=== PATIENT | male | born 1995 | race Caucasian/White ===

== ENCOUNTER 2016-08-26 09:48 | Inpatient (IN) | payer OTHER ==
[~2016-08-26] VITALS: Ht 170.2 cm; Wt 75.7 kg
[2016-08-27] MEDS ORDERED: CLON0.1T PO (09:59)
[2016-08-27] MEDS ORDERED: PHEN100C4 PO (09:59)
[2016-08-27] MEDS ORDERED: PROP10TA10 PO (09:59)
[2016-08-27] MEDS ORDERED: GABA600T2 PO (09:59)
[2016-08-27] MEDS ORDERED: BACL20TA PO (09:59)
[2016-08-27] MEDS ORDERED: OMEP20TA68 PO (09:59)
[2016-08-27] MEDS ORDERED: HYDR50CA5 PO (09:59)
--- NOTE | 2016-08-27 10:30 | NUR ---
ADMISSION Pt 21 y/o male admitted for xanax, klonopin, subutex, fentanyl withdrawal. Pt came from friend's house. Pt alert and oriented to name, place, and time. Perrla. Skin warm and moist to touch. Respirations even and unlabored. Bilateral hand tremors felt. initial EL=310/84. recheck BP= 143/87. Pt observed with perspiration on face. Pt anxious, pacing, and fidgety during assessment. Pt also with statements, " my skin is crawling". Allergy to pcn. Pt was started on a 5 day subutex and 5 day valium taper. Initial cows=11 ciwa=5. Pt was seen by Dr. Monahan. Pt was oriented to the unit and room. Pt states he has no PCP. Substance hx: - xanax po 12 mg daily x 5months and last used 08/26/16 8 mg - klonopin po 6-8mg every other day x4 months and last used 08/25/16 6 mg - subutex po SL 20mg daily x5 months and last used 08/27/16 4 mg - fentanyl powder snorts 0.5gm 1-2 times per week and last used 08/23/16 0.5gm - heroin IV 1gm daily x 4 years and last used 05/17/16 2.5gm Medical hx - seizure (12/27 benzo withdrawal) , htn, hep C ( per pt) treatment hx: - [facility] 03/2016
[2016-08-27] MEDS ORDERED: LORAZEPAM 1 MG TABLET PO PRN ×2 (11:15)
[2016-08-27] MEDS ORDERED: LORAZEPAM 2 MG/1 ML VIAL IM PRN (11:15)
[2016-08-27] MEDS ORDERED: LOPERAMIDE HCL 2 MG CAPSULE PO PRN ×2 (11:15)
[2016-08-27] MEDS ORDERED: MAG HYDROX/AL HYDROX/SIMETH 30 ML LIQUID UDC PO PRN (11:15)
[2016-08-27] MEDS ORDERED: MIRALAX 17 GM POWD.PACK PO PRN (11:15)
[2016-08-27] MEDS ORDERED: ACETAMINOPHEN 325 MG TABLET PO PRN (11:15)
[2016-08-27] MEDS ORDERED: THIAMINE HCL 200 MG/2 ML VIAL IM ONE (11:15)
[2016-08-27] MEDS ORDERED: DICYCLOMINE HCL 20 MG TABLET PO PRN (11:15)
[2016-08-27] MEDS ORDERED: MAGNESIUM HYDROXIDE 30 ML LIQUID UDC PO PRN (11:15)
[2016-08-27] MEDS ORDERED: PROMETHAZINE HCL 25 MG/1 ML VIAL IM PRN (11:15)
[2016-08-27] MEDS ORDERED: BUPRENORPHINE HCL 2 MG TAB.SUBL SL PRN (11:30)
[2016-08-27] MEDS ORDERED: Medication Not On Formulary EA (Omeprazole 20 MG) PO SCH (11:30)
[2016-08-27] MEDS ORDERED: PHENYTOIN SODIUM EXTENDED 100 MG CAPSULE.SA PO SCH (11:30)
[2016-08-27 11:32] LABS: *AMPHETAMINE, URINE NEGATIVE (NEGATIVE); *BARBITURATE, URINE NEGATIVE (NEGATIVE); *CANNABINOID, URINE NEGATIVE (NEGATIVE); *COCCAINE, URINE NEGATIVE (NEGATIVE); *OPIATE, URINE NEGATIVE (NEGATIVE); *PHENCYCLIDINE SCREEN,URINE NEGATIVE (NEGATIVE)
[2016-08-27] MEDS ORDERED: DILANTIN 30 MG PO SCH (11:45)
[2016-08-27 11:47] LABS: BASOPHILS # (AUTO) 0.1 K/uL (0.0-0.2); BASOPHILS % (AUTO) 0.9 % (0.0-2.0); EOSINOPHILS # (AUTO) 0.1 K/uL (0.0-0.7); EOSINOPHILS % (AUTO) 1.2 % (0.0-7.0); HEMATOCRIT 42.7 % (40.0-50.0); HEMOGLOBIN 14.5 g/dL (14.0-18.0); LYMPHOCYTES # (AUTO) 3.7 K/uL (0.8-4.8); LYMPHOCYTES % (AUTO) 41.5 % (20.5-51.5); MEAN CORPUSCULAR HEMOGLOBIN 29.8 uug (27.0-31.0); MEAN CORPUSCULAR HGB CONC 34 g/dL (32.0-37.0); MEAN CORPUSCULAR VOLUME 87.8 fL (82.0-92.0); MONOCYTES # (AUTO) 0.9 K/uL (0.1-1.30); MONOCYTES % (AUTO) 10.6 % (0.0-11.0); NEUTROPHILS # (AUTO) 4.1 K/uL (1.8-8.9); NEUTROPHILS % (AUTO) 45.8 % (38.5-71.5); PLATELET COUNT (AUTO) 292 K/uL (150-450); RED BLOOD CELL COUNT(AUTO) 4.86 MIL/uL (4.70-6.10); RED CELL DISTRIBUTION WIDTH 12.9 % (11.5-14.5); WHITE BLOOD COUNT (AUTO) 8.9 K/uL (4.0-11.2)
[2016-08-27 12:00] VITALS: BP 143/87
[2016-08-27] MEDS: GABAPENTIN 300 MG CAPSULE PO SCH ×2 (12:06→17:34)
[2016-08-27] MEDS: BUPRENORPHINE HCL 2 MG TAB.SUBL SL SCH ×4 (12:06→21:19)
[2016-08-27 12:12] LABS: ETHANOL < 3 MG/DL (0-0)
[2016-08-27 12:16] LABS: ALANINE AMINOTRANSFERASE 106 U/L (16-63); ALKALINE PHOSPHATASE 104 U/L (50-136); ASPARTATE AMINOTRANSFERASE 44 U/L (15-37); BILIRUBIN,TOTAL 0.5 mg/dL (0.2-1.0); CALCIUM 8.9 mg/dL (8.5-10.1); CARBON DIOXIDE 30 mmol/L (21-32); CHLORIDE 109 mmol/L (98-107); GFR 94 mL/min (>60); GLUCOSE 95 mg/dL (74-106); MAGNESIUM 1.9 mg/dL (1.8-2.4); POTASSIUM 3.9 mmol/L (3.5-5.1); SODIUM SERUM 146 mmol/L (136-145); TOTAL PROTEIN, SERUM 6.8 g/dL (6.4-8.2); UREA NITROGEN, BLOOD 12 mg/dL (7-18)
[2016-08-27] MEDS: BACLOFEN 20 MG TABLET PO PRN (12:27)
[2016-08-27] MEDS: CLONIDINE HCL 0.1 MG TABLET PO PRN ×2 (12:27→19:03)
[2016-08-27] MEDS: ONDANSETRON ODT 4 MG TAB.RAPDIS SL PRN (12:27)
--- NOTE | 2016-08-27 12:27 | NUR ---
PRN Pt with c/o body aches 01/21. Baclofen po prn per MD order given and tolerated well.
--- NOTE | 2016-08-27 12:27 | NUR ---
PRN Pt with c/o nausea. Zofran po prn per MD order given and tolerated well.
[2016-08-27 12:31] LABS: THYROID STIMULATING HORMONE 0.421 mIU/mL (0.358-3.740)
[2016-08-27 12:39] LABS: HIV-1 p24 ANTIGEN NON REACTIVE (NONREACTIVE); HIV-1/2 ANTIBODY NON REACTIVE (NONREACTIVE)
[2016-08-27] MEDS ORDERED: Medication Not On Formulary EA (Gabapentin 600 MG) PO SCH (13:00)
[2016-08-27] MEDS ORDERED: DIAZEPAM 5 MG TABLET PO PRN (14:00)
[2016-08-27] MEDS ORDERED: NORMAL SALINE NASAL 45 ML BOTTLE NS PRN (14:00)
[2016-08-27] MEDS ORDERED: DIAZEPAM 10 MG TABLET PO PRN ×2 (14:00)
[2016-08-27] MEDS: DIAZEPAM 10 MG TABLET PO SCH ×3 (14:39→21:19)
[2016-08-27] MEDS ORDERED: PHENYTOIN 100 MG/4 ML UDC PO ONE (14:45)
[2016-08-27] MEDS ORDERED: PHENYTOIN SODIUM EXTENDED 100 MG CAPSULE.SA PO ONE ×3 (15:00→19:00)
[2016-08-27] MEDS: METHOCARBAMOL 750 MG TABLET PO PRN (15:47)
[2016-08-27] MEDS: HYDROXYZINE PAMOATE 25 MG CAPSULE PO PRN (15:47)
--- NOTE | 2016-08-27 15:47 | NUR ---
PRN Pt with c/o body aches 11/21. Robaxin po prn per MD order given and tolerated well.
--- NOTE | 2016-08-27 15:47 | NUR ---
PRN Pt with cows=12, with perspiration observed on skin, and pt stating " my skin is crawling". Subutex po prn per MD order given and tolerated well.
[2016-08-27 16:00] VITALS: BP 143/80
--- NOTE | 2016-08-27 19:05 | NUR ---
PRN Pt with c/o anxiety. Catapres po prn per MD order given and tolerated well.
--- NOTE | 2016-08-27 19:30 | NUR ---
END OF SHIFt Pt 21 y/o male admitted for xanax, klonopin, subutex, fentanyl withdrawal. Pt alert and oriented to name, place, and time. Perrla. Skin warm and moist to touch. Respirations even and unlabored. Bilateral hand tremors felt. Pt attended group activity. Pt with periods of anxiety throughout the day. Pt was seen by Dr. Monahan today. Pt medication compliant and tolerated well. No ASe noted. Bed on lowest position with side rails x2 up for safety. Call light within reach. No distress noted at this time.
--- NOTE | 2016-08-27 19:31 | NUR ---
Start of shift note Received report from day shift nurse. Pt is a 21 yo male, A+Ox4, presenting to [facility] for Benzo/Opiate dependence. Pt has Allergies to PCN, is Full Code status, and on Regular diet. Pt is on Fall and Seizure precautions. Pt has HX of Seizure, HTN, and Hep C+. Pt is on 5 day Valium and Ativan tapers, tolerated well. No s/s of distress noted at this time. Respirations even and unlabored. Will continue to monitor.
[2016-08-27 20:38] VITALS: BP 134/70
[2016-08-28] MEDS: IBUPROFEN 600 MG TABLET PO PRN ×2 (00:19→06:50)
--- NOTE | 2016-08-28 00:19 | NUR ---
PRN Motrin Pt c/o toothache and requested for PRN Motrin. Medication given and tolerated well. Will reassess within 1 HR. Will continue to monitor.
[2016-08-28 00:33] VITALS: BP 131/80
--- NOTE | 2016-08-28 01:15 | NUR ---
PRN Motrin Reassessment Medication effective. No s/s of ASE/distress noted at this time. Respirations even and unlabored. Will continue to monitor.
[2016-08-28] MEDS: diphenhydrAMINE 50 MG CAPSULE PO PRN ×2 (01:37→20:24)
--- NOTE | 2016-08-28 01:40 | NUR ---
PRN Benadryl Pt c/o inability to sleep and requested for PRN Benadryl. Medication given and tolerated well. Will reassess within 1 HR. Will continue to monitor.
--- NOTE | 2016-08-28 02:35 | NUR ---
PRN Benadryl Reassessment Medication effective. No s/s of ASE/distress noted at this time. Respirations even and unlabored. Will continue to monitor.
--- NOTE | 2016-08-28 04:23 | NUR ---
V/S, COWS, and CIWA Refused V/S, COWS, and CIWA Refused. no s/s of distress noted at this time. Respirations even and unlabored. Will continue to monitor.
[2016-08-28] MEDS: PANTOPRAZOLE SODIUM 40 MG TABLET.DR PO SCH (06:45)
--- NOTE | 2016-08-28 06:52 | NUR ---
PRN Motrin Pt c/o toothache and requested for PRN Motrin. Medication given and tolerated well. Will reassess within 1 HR. Will continue to monitor.
--- NOTE | 2016-08-28 07:14 | NUR ---
PRN Motrin Reassessment Medication effective. No s/s of ASE/distress noted at this time. Respirations even and unlabored. Will continue to monitor.
--- NOTE | 2016-08-28 07:15 | NUR ---
End of shift note Pt is a 21 yo male, A+Ox4, presenting to [facility] for Benzo/Opiate dependence. Pt has Allergies to PCN, is Full Code status, and on Regular diet. Pt is on Fall and Seizure precautions. Pt has HX of Seizure, HTN, and Hep C+. Pt is on 5 day Valium and Ativan tapers, tolerated well. Pt was given PRN Motrin @0019 and @0651 and PRN Benadryl @0140. Pt slept for a total of 4 HRS. Last COWS: 5 and Last CIWA: 3 @0000. No s/s of distress noted at this time. Respirations even and unlabored. Will endorse to day shift nurse.
--- NOTE | 2016-08-28 07:53 | NUR ---
START OF SHIFT Pt 21 y/o male admitted for fentanyl, xanax, klonopin, and subutex withdrawal. Pt received in room awake in bed watching television. Pt alert and oriented to name, place, and time. Perrla. Skin warm and slightly moist to touch. Respirations even and unlabored. It was reported that pt slept for [address] Godwin is here to see pt. Bed on lowest position with side rails x2 up for safety. Call light within reach. No distress noted at this time.
[2016-08-28 08:00] VITALS: BP 144/92
[2016-08-28 08:59] LABS: BASOPHILS % (AUTO) 0.3 % (0.0-2.0); EOSINOPHILS # (AUTO) 0.2 K/uL (0.0-0.7); EOSINOPHILS % (AUTO) 2.2 % (0.0-7.0); HEMATOCRIT 44.2 % (40.0-50.0); HEMOGLOBIN 15.1 g/dL (14.0-18.0); LYMPHOCYTES # (AUTO) 3.6 K/uL (0.8-4.8); LYMPHOCYTES % (AUTO) 46.6 % (20.5-51.5); MEAN CORPUSCULAR HEMOGLOBIN 30.2 uug (27.0-31.0); MEAN CORPUSCULAR HGB CONC 34 g/dL (32.0-37.0); MEAN CORPUSCULAR VOLUME 88.2 fL (82.0-92.0); MONOCYTES # (AUTO) 0.9 K/uL (0.1-1.30); MONOCYTES % (AUTO) 11.8 % (0.0-11.0); NEUTROPHILS % (AUTO) 39.1 % (38.5-71.5); PLATELET COUNT (AUTO) 268 K/uL (150-450); RED BLOOD CELL COUNT(AUTO) 5.01 MIL/uL (4.70-6.10); RED CELL DISTRIBUTION WIDTH 12.6 % (11.5-14.5); WHITE BLOOD COUNT (AUTO) 7.7 K/uL (4.0-11.2)
[2016-08-28] MEDS ORDERED: TUBERCULIN,PURIF.PROT.DERIV. 5 TU/0.1 ML TEST ID ONE (09:00)
[2016-08-28] MEDS: DIAZEPAM 10 MG TABLET PO SCH ×3 (09:25→20:24)
[2016-08-28] MEDS: MULTIVITAMINS,THERAPEUTIC TABLET PO SCH (09:25)
[2016-08-28] MEDS: FOLIC ACID 1 MG TABLET PO SCH (09:25)
[2016-08-28] MEDS: DOCUSATE SODIUM 250 MG CAPSULE PO SCH (09:25)
[2016-08-28] MEDS: THIAMINE HCL 100 MG TABLET PO SCH (09:26)
[2016-08-28] MEDS: GABAPENTIN 300 MG CAPSULE PO SCH ×4 (09:26→20:24)
[2016-08-28] MEDS: PHENYTOIN SODIUM EXTENDED 100 MG CAPSULE.SA PO SCH (09:26)
[2016-08-28] MEDS: BUPRENORPHINE HCL 2 MG TAB.SUBL SL SCH ×3 (09:27→20:25)
[2016-08-28] MEDS: PROPRANOLOL HCL 10 MG TABLET PO SCH (09:27)
[2016-08-28] MEDS: METHOCARBAMOL 750 MG TABLET PO PRN ×2 (09:31→17:57)
[2016-08-28] MEDS: CLONIDINE HCL 0.1 MG TABLET PO PRN ×2 (09:31→17:57)
[2016-08-28 09:39] LABS: ALBUMIN 4.1 g/dL (3.4-5.0); BILIRUBIN,DIRECT 0.1 mg/dL (0.0-0.2); BILIRUBIN,TOTAL 0.3 mg/dL (0.2-1.0); CALCIUM 8.8 mg/dL (8.5-10.1); CREATININE 1.2 mg/dL (0.6-1.3); MAGNESIUM 1.9 mg/dL (1.8-2.4); PHOSPHOROUS 5.1 mg/dL (2.5-4.9); POTASSIUM 4.4 mmol/L (3.5-5.1)
[2016-08-28 11:39] LABS: HCV AB >11.0 s/co ratio (0.0-0.9); HEPATITIS B CORE AB, IgM Negative (Negative); HEPATITIS B SURFACE AG Negative (Negative)
[2016-08-28 12:00] VITALS: BP 140/71
[2016-08-28] MEDS: BACLOFEN 20 MG TABLET PO PRN (13:03)
--- NOTE | 2016-08-28 13:03 | NUR ---
PRN Pt with c/o generalized body aches 01/21. baclofen po prn per md order given and tolerated well.
[2016-08-28] MEDS: BENZOCAINE ORAL CARE 12 ML BOTTLE MM PRN (15:25)
[2016-08-28 16:00] VITALS: BP 145/96
--- NOTE | 2016-08-28 17:57 | NUR ---
PRN Pt with c/o body aches 6/10 generalized. Robaxin po prn per md order given and tolerated well.
--- NOTE | 2016-08-28 17:57 | NUR ---
PRN Pt with c/o anxiety. Catapres po prn per MD order given and tolerated well.
[2016-08-28] MEDS: ONDANSETRON ODT 4 MG TAB.RAPDIS SL PRN (18:12)
--- NOTE | 2016-08-28 18:12 | NUR ---
PRN Pt states he vomited x1 ,but flushed the toilet and did not show staff. Pt with c/o nausea. Zofran po prn per md order given adn tolerated well.
--- NOTE | 2016-08-28 18:13 | NUR ---
PRN Pt with ciwa=8. Pt appeared anxious and fidgety and easily irritable. Dr. Townsend on unit with new order for valium 5 mg po x1 dose noted and carried out.
--- NOTE | 2016-08-28 18:13 | NUR ---
PRN pt with w c/o stomach cramps. Bentyl po prn per md order given and tolerated well.
[2016-08-28] MEDS ORDERED: DIAZEPAM 5 MG TABLET PO ONE (18:15)
--- NOTE | 2016-08-28 19:05 | NUR ---
END OF SHIFT Pt 21 y/o male admitted for xanax, klonopin, subutex, fentanyl withdrawal. Pt alert and oriented to name, place, and time. Perrla. Skin warm and moist to touch. Respirations even and unlabored. Bilateral hand tremors felt. Pt attended group activity. Pt appears focused on medications at times through out the day. Pt was seen by Dr. Monahan today. Pt medication compliant and tolerated well. No ASE noted. Bed on lowest position with side rails x2 up for safety. Call light within reach. No distress noted at this time.
--- NOTE | 2016-08-28 19:06 | NUR ---
Start of shift note Received report from day shift nurse. Pt is a 21 yo male, A+Ox4, presenting to [facility] for Benzo/Opiate dependence. Pt has Allergies to PCN, is Full Code status, and on Regular diet. Pt is on Fall and Seizure precautions. Pt has HX of Seizure, HTN, and Hep C+. Pt is on 5 day Valium and Ativan tapers, tolerated well. No s/s of distress noted at this time. Respirations even and unlabored. Will continue to monitor.
[2016-08-28 20:12] VITALS: BP 136/72
--- NOTE | 2016-08-28 20:28 | NUR ---
PRN Benadryl Pt c/o inability to sleep and requested for PRN Benadryl. Medication given and tolerated well. Will reassess within 1 HR. Will continue to monitor.
--- NOTE | 2016-08-28 21:15 | NUR ---
PRN Benadryl Reassessment Medication effective. No s/s of ASE/distress noted at this time. Respirations even and unlabored. Will continue to monitor.
--- NOTE | 2016-08-29 00:15 | NUR ---
V/S, COWS, and CIWA Refused V/S, COWS, and CIWA Refused. no s/s of distress noted at this time. Respirations even and unlabored. Will continue to monitor.
[2016-08-29] MEDS: HYDROXYZINE PAMOATE 25 MG CAPSULE PO PRN ×2 (03:13→17:33)
[2016-08-29] MEDS: METHOCARBAMOL 750 MG TABLET PO PRN ×2 (03:13→17:33)
--- NOTE | 2016-08-29 03:15 | NUR ---
PRN Vistaril and Robaxin Pt c/o anxiety and general body pain and requested for PRN Vistaril and Robaxin. Medication given and tolerated well. Will reassess within 1 HR. Will continue to monitor.
--- NOTE | 2016-08-29 03:48 | NUR ---
PRN Vistaril and Robaxin Reassessment Medications effective. No s/s of ASE/distress noted at this time. Respirations even and unlabored. Will continue to monitor.
[2016-08-29] MEDS: ONDANSETRON ODT 4 MG TAB.RAPDIS SL PRN ×3 (04:01→17:33)
[2016-08-29] MEDS: IBUPROFEN 600 MG TABLET PO PRN (04:04)
--- NOTE | 2016-08-29 04:07 | NUR ---
PRN Motrin and Zofran Pt c/o nausea and tooth pain and requested for PRN Motrin and Zofran. Medications given and tolerated well. Will reassess within 1 HR. Will continue to monitor.
--- NOTE | 2016-08-29 04:10 | NUR ---
V/S, COWS, and CIWA Refused V/S, COWS, and CIWA Refused. no s/s of distress noted at this time. Respirations even and unlabored. Will continue to monitor.
--- NOTE | 2016-08-29 05:06 | NUR ---
PRN Motrin and Zofran Reassessment Medications effective. No s/s of ASE/distress noted at this time. Respirations even and unlabored. Will continue to monitor.
[2016-08-29] MEDS: PANTOPRAZOLE SODIUM 40 MG TABLET.DR PO SCH (06:51)
--- NOTE | 2016-08-29 06:57 | NUR ---
End of shift note Pt is a 21 yo male, A+Ox4, presenting to [facility] for Benzo/Opiate dependence. Pt has Allergies to PCN, is Full Code status, and on Regular diet. Pt is on Fall and Seizure precautions. Pt has HX of Seizure, HTN, and Hep C+. Pt is on 5 day Valium and Ativan tapers, tolerated well. Pt was given PRN Benadryl @2027, PRN Vistatril and Robaxin @314, and PRN Motrin and Zofran @040. Pt slept for a total of 6 HRS. Last COWS: 5 and Last CIWA: 3 @1999. No s/s of distress noted at this time. Respirations even and unlabored. Will endorse to day shift nurse. Addendum: 08/29/16 at 0716 by EVANS WARREN LVN Pt is on 5 Valium and Subutex tapers, tolerated well
--- NOTE | 2016-08-29 07:08 | NUR ---
Start Of Shift Pt is a 21 y/o male admitted for Xanax, Klonopin, Subutex and Fentanyl withdrawal. Pt is full code regular diet on fall and seizure precautions states he is allergic to PCN. Pt has HX of Seizures last one occurred on December 2015, HTN, and pt is Hep C+. Pt is placed on a 5 day Valium and Subutex tapers, tolerating well. Pt received PRN Benadryl, Vistaril, Robaxin, Motrin and Zofran last night which were effective per assistant casino shift manager nurse. Pts last CIWA was a 3 and COWS was a 5 taken at 1999. Pt slept a total of 6 hours last night. All safety measures in place per hospital policy, call light within reach, bed in lowest locked position side rails up x2, will continue to monitor and provide support.
[2016-08-29 08:00] VITALS: BP 146/94
[2016-08-29] MEDS ORDERED: BUPRENORPHINE HCL 2 MG TAB.SUBL SL SCH (09:00)
[2016-08-29] MEDS: THIAMINE HCL 100 MG TABLET PO SCH (09:19)
[2016-08-29] MEDS: GABAPENTIN 300 MG CAPSULE PO SCH ×3 (09:19→20:15)
[2016-08-29] MEDS: DOCUSATE SODIUM 250 MG CAPSULE PO SCH (09:19)
[2016-08-29] MEDS: DIAZEPAM 5 MG TABLET PO SCH ×4 (09:19→20:15)
[2016-08-29] MEDS: FOLIC ACID 1 MG TABLET PO SCH (09:19)
[2016-08-29] MEDS: PROPRANOLOL HCL 10 MG TABLET PO SCH (09:20)
[2016-08-29] MEDS: BACLOFEN 20 MG TABLET PO PRN (09:21)
[2016-08-29] MEDS: PHENYTOIN SODIUM EXTENDED 100 MG CAPSULE.SA PO SCH (09:21)
[2016-08-29] MEDS: MULTIVITAMINS,THERAPEUTIC TABLET PO SCH (09:22)
[2016-08-29] MEDS: CLONIDINE HCL 0.1 MG TABLET PO PRN (09:22)
--- NOTE | 2016-08-29 09:22 | NUR ---
PRN MEDICATION Pt c/o anxiety nausea and muscle aches rating it 4/10 requested something for relief, non-pharmacological techniques interventions provided x3 and were not effective. PRN Zofran 4mg Clonidine 0.1mg and Baclofen 20mg administered PO, educated pt about s/e of medication and when to contact nurse. all needs met, all safety measures in place, will continue to monitor.
--- NOTE | 2016-08-29 10:22 | NUR ---
PRN REASSESSMENT Medication effective pt reported a decrease in anxiety, was no longer nauseas and his pain level decreased to 0/10 all needs met, all safety measures in place will continue to monitor.
[2016-08-29 12:00] VITALS: BP 114/95
[2016-08-29] MEDS ORDERED: BUPRENORPHINE HCL 2 MG TAB.SUBL SL ONE (14:00)
[2016-08-29] MEDS: DICYCLOMINE HCL 20 MG TABLET PO SCH ×2 (14:18→20:16)
[2016-08-29] MEDS: BUPRENORPHINE HCL 2 MG TAB.SUBL SL SCH ×2 (14:18→20:16)
[2016-08-29] MEDS: CLONIDINE HCL 0.1 MG TABLET PO SCH ×2 (14:19→20:15)
[2016-08-29] MEDS: BACLOFEN 20 MG TABLET PO SCH ×2 (14:19→20:15)
--- NOTE | 2016-08-29 17:33 | NUR ---
PRN MEDICATIONS Pt c/o Anxiety presented with agitation and restlessness pt also complained of nausea, requested something for relief, non-pharmacological techniques interventions provided x3 and were not effective. PRN Zofran 4mg PO Vistaril 50mg, and Robaxin 750mg administered PO, educated pt about s/e of medication and when to contact nurse. all needs met, all safety measures in place, will continue to monitor.
[2016-08-29 17:39] VITALS: BP 149/78
--- NOTE | 2016-08-29 18:33 | NUR ---
PRN REASSESSMENT Medication effective pt reported a decrease in anxiety, was no longer nauseas stating "I Feel Much better thank you" all needs met, all safety measures in place will continue to monitor.
--- NOTE | 2016-08-29 19:13 | NUR ---
End Of Shift Pt is a 21 y/o male admitted for Xanax, Klonopin, Subutex and Fentanyl withdrawal. Pt is full code regular diet on fall and seizure precautions states he is allergic to PCN. Pt has HX of Seizures last one occurred on December 2015, HTN, and Pt is Hep C+. Pt is placed on a 5 day Valium and 5 day Subutex tapers, tolerating well. Pt received PRN Zofran 4mg(x2) Vistaril 50mg, Robaxin 750mg, Clonidine 0.1mg, and Baclofen 20mg which were effective . Pts last CIWA was a 6 and COWS was a 5 taken at 1600. Pt participated in most activities and groups. Pt needs his PPD to be checked tomorrow. Pt stated that the medications are working well at controlling the withdrawal symptoms, evidenced by low assessment scores during the day ranging from 7-5 and 7-6. Pt ate all of his meals. Pt remains compliant with the treatment plan. Pts vital signs within normal limits, A/Ox4, denies chest pain. Respirations even unlabored, lungs clear upon auscultation abdomen soft and non- distended. Pt denies vomiting and diarrhea. Pt total fluid intake was 2537 ml with 4 voids and no stool. Safety measures in place, call light within reach. All pertinent information discussed with shiftman, endorsement given to shiftman nurse.
[2016-08-29] MEDS ORDERED: DOCUSATE SODIUM 250 MG CAPSULE PO PRN (19:15)
--- NOTE | 2016-08-29 19:15 | NUR ---
START OF SHIFT Received 21 year old male patient admitted on 08/27/16 for benzodiazipine, subutex, heroin and fentanyl dependency. Pt is full code with allergy to PCN. He reports a PMHX of seizure, HTN, and hep C. He is placed on a 5 day Subutex and 5 day valium taper and tolerating well. Per endorsement, he received PRN Zofran x2, and vistaril. He also completed an EEG today. Pt is alert and oriented x4, breathing is even and unlabored, safety measures in place. Will continue to monitor.
[2016-08-29 20:00] VITALS: BP 144/91
[2016-08-29] MEDS: diphenhydrAMINE 50 MG CAPSULE PO PRN (20:27)
--- NOTE | 2016-08-29 20:27 | NUR ---
PRN BENADRYL Pt complains of inability to fall asleep. PRN Benadryl administered as ordered. Breathing even and unlabored, safety measures in place. Will continue to monitor effectiveness of medication.
--- NOTE | 2016-08-29 21:27 | NUR ---
PRN BENADRYL REASSESSMENT PRN medication ineffective. Pt still awake at this time, in room watching TV. Breathing even and unlabored, safety measures in place. Will continue to monitor.
--- NOTE | 2016-08-30 | NUR ---
VITALS 0000 vitals refused by pt at beginning of shift. Pt stated, " I don't want to be woken up." Pt lying in bed with eyes closed noted to be asleep. Respirations 16, breathing even and unlabored. Safety measures in place. Will continue to monitor. Addendum: 08/30/16 at 0113 by ARTHUR PHAN RN Amended: Links added.
--- NOTE | 2016-08-30 04:00 | NUR ---
VITALS 0400 vitals refused by pt at beginning of shift. Pt stated, " I don't want to be woken up." Pt lying in bed with eyes closed noted to be asleep. Respirations 16, breathing even and unlabored. Safety measures in place. Will continue to monitor.
[2016-08-30] MEDS: PANTOPRAZOLE SODIUM 40 MG TABLET.DR PO SCH (06:52)
--- NOTE | 2016-08-30 07:12 | NUR ---
END OF SHIFT Pt is a 21 year old male patient admitted on 08/27/16 for benzodiazipine, subutex, heroin and fentanyl dependency. Pt is full code with allergy to PCN. He reports a PMHX of seizure, HTN, and hep C. He is placed on a 5 day Subutex and 5 day valium taper and tolerating well. He received PRN Benadryl. He slept a total of 6 hrs, Intake: 1600 mL, Void: x2, BM: 0 COWS:7, CIWA: 6. Pt remains alert and oriented x4, breathing is even and unlabored, safety measures in place. Endorsed to oncoming shift.
--- NOTE | 2016-08-30 07:15 | NUR ---
Start Of Shift Pt is a 21 y/o male admitted for Xanax, Klonopin, Subutex and Fentanyl withdrawal. Pt is full code regular diet on fall and seizure precautions states he is allergic to PCN. Pt has HX of Seizures last one occurred on December 2015, HTN, and pt is Hep C+. Pt is placed on a 5 day Valium and Subutex tapers, tolerating well. Pt received PRN Benadryl, last night which was effective per assistant casino shift manager nurse. Pt's last CIWA was a 6 and COWS was a 7 taken at 2000. Pt slept a total of 6 hours last night. All safety measures in place per hospital policy, call light within reach, bed in lowest locked position side rails up x2, will continue to monitor and provide support.
[2016-08-30 08:00] VITALS: BP 141/74
[2016-08-30] MEDS: PHENYTOIN SODIUM EXTENDED 100 MG CAPSULE.SA PO SCH (09:29)
[2016-08-30] MEDS: BUPRENORPHINE HCL 2 MG TAB.SUBL SL SCH ×3 (09:29→20:52)
[2016-08-30] MEDS: DICYCLOMINE HCL 20 MG TABLET PO SCH ×3 (09:30→20:51)
[2016-08-30] MEDS: PROPRANOLOL HCL 10 MG TABLET PO SCH (09:30)
[2016-08-30] MEDS: GABAPENTIN 300 MG CAPSULE PO SCH ×3 (09:30→20:52)
[2016-08-30] MEDS: CLONIDINE HCL 0.1 MG TABLET PO SCH ×3 (09:30→20:51)
[2016-08-30] MEDS: METHOCARBAMOL 750 MG TABLET PO PRN (09:30)
--- NOTE | 2016-08-30 09:30 | NUR ---
PRN MEDICATION Pt c/o muscle aches rating it 5/10 requested something for relief, non-pharmacological techniques interventions provided x3 and were not effective. PRN Robaxin 750mg administered PO, educated pt about s/e of medication and when to contact nurse. all needs met, all safety measures in place, will continue to monitor.
[2016-08-30] MEDS: DIAZEPAM 5 MG TABLET PO SCH ×3 (09:31→20:52)
[2016-08-30] MEDS: MULTIVITAMINS,THERAPEUTIC TABLET PO SCH (09:31)
[2016-08-30] MEDS: BACLOFEN 20 MG TABLET PO SCH ×3 (09:31→20:51)
--- NOTE | 2016-08-30 10:30 | NUR ---
PRN REASSESSMENT Medication effective pt reported a decrease in his pain level to 1/10 all needs met, all safety measures in place will continue to monitor.
[2016-08-30 12:00] VITALS: BP 155/89
[2016-08-30] MEDS: HYDROXYZINE PAMOATE 25 MG CAPSULE PO PRN (12:34)
--- NOTE | 2016-08-30 12:34 | NUR ---
PRN MEDICATION Pt c/o anxiety requested something for relief, non-pharmacological techniques interventions provided x3 and were not effective. PRN Vistaril 50mg PO administered , educated pt about s/e of medication and when to contact nurse. all needs met, all safety measures in place, will continue to monitor.
--- NOTE | 2016-08-30 13:34 | NUR ---
PRN REASSESSMENT Medication effective pt reported a decrease in anxiety, all needs met, all safety measures in place will continue to monitor.
[2016-08-30 14:03] LABS: CALCIUM 8.5 mg/dL (8.5-10.1); CREATININE 1.1 mg/dL (0.6-1.3); MAGNESIUM 1.9 mg/dL (1.8-2.4)
[2016-08-30 16:00] VITALS: BP 131/83
--- NOTE | 2016-08-30 19:21 | NUR ---
End Of Shift Pt is a 21 y/o male admitted for Xanax, Klonopin, Subutex and Fentanyl withdrawal. Pt is full code regular diet on fall and seizure precautions states he is allergic to PCN. Pt has HX of Seizures last one occurred on December 2015, HTN, and Pt is Hep C+. Pt is placed on a 5 day Valium and 5 day Subutex tapers, tolerating well. Pt received PRN Vistaril 50mg, Robaxin 750mg, which were effective . Pts last CIWA was a 3 and COWS was a 3 taken at 1600. Pt participated in most activities and groups. Pt stated that the medications are working well at controlling the withdrawal symptoms, evidenced by low assessment scores during the day ranging from 7-3 and 7-3. Pt ate all of his meals. Pt remains compliant with the treatment plan. Pts vital signs within normal limits, A/Ox4, denies chest pain. Respirations even unlabored, lungs clear upon auscultation abdomen soft and non- distended. Pt denies vomiting and diarrhea. Pt total fluid intake was 2537 ml with 4 voids and no stool. Safety measures in place, call light within reach. All pertinent information discussed with hourly shift manager, endorsement given to hourly shift manager nurse.
[2016-08-30 20:00] VITALS: BP 147/87
--- NOTE | 2016-08-30 20:00 | NUR ---
1999 Patient received awake, alert and just returning back to his room # [id number] from [facility] group in recreation room. Gait is steady. Patient responds to nurse's greeting and introduction with, " Oh, you my nurse tonight ? Hi". Patient's color is pink and his skin is clean, dry and intact. Patient is oriented to person, place, day, time and his personal situation. Easily reoriented to time. Patient's lung sounds are clear bilaterally with active bowel sounds noted X 4 abdominal Quads, per auscultation. Patient states that he has been eating and taking fluids ad tessa and trying to consistently attend all groups and do everything that is asked of him, while here at [facility]. Vital signs are: 98.4-92-16 147/87 O2 Sat 97%, COWS 5, CIWA 2. Patient easily converses with nurse regarding himself, his social and drug use history, his treatment history and his mindset presently, regarding his future. Patient allowed to ventilate his feelings at length, then, positive encouragement and praise given to him for his appropriate, positive attitudes expressed to nurse. Patient moves all his extremities fully WNL, however body movements are a bit slow as are his verbalizations. Patient was admitted on 08/27/16 for polysubstance withdrawal ( xanax, klonopin, suboxone, fentanyl, ) and he is currently on 5-Day Subutex and 5-Day Valium medication tapers, which he has apparently been tolerating well. Fall/Seizure precautions continue. Bed is locked and in lowest position, bed rails are up X 1 and call light on patient's bed. No requests or complaints offered at this time.
[2016-08-30] MEDS: BENZOCAINE ORAL CARE 12 ML BOTTLE MM PRN (21:01)
[2016-08-30] MEDS: IBUPROFEN 600 MG TABLET PO PRN (21:01)
--- NOTE | 2016-08-30 21:01 | NUR ---
PRN MEDICATIONS : Prn Motrin 600 mg p.o. given for c/o " wisdom tooth pain", 5/10 pain scale and Prn Anbesol Benzocaine solution, 1 ml applied to wisdom tooth area per prn D.O. and patient request.
--- NOTE | 2016-08-30 22:01 | NUR ---
REASSESSMENT PRN MEDICATION: Patient states that medication given at 2101 was effective "for now", as tooth discomfort has lessened significantly.
[2016-08-30] MEDS: diphenhydrAMINE 50 MG CAPSULE PO PRN (23:08)
--- NOTE | 2016-08-30 23:08 | NUR ---
PRN MEDICATION: Prn Benadryl 50 mg p.o. given per patient request for sleep medication.
[2016-08-30] MEDS: CLONIDINE HCL 0.1 MG TABLET PO PRN (23:09)
[2016-08-30] MEDS: ONDANSETRON ODT 4 MG TAB.RAPDIS SL PRN (23:09)
--- NOTE | 2016-08-30 23:09 | NUR ---
PRN MEDICATIONS : Prn Tylenol 650 mg p.o. given per patient c/o mild headache, " probably related to the toothache some how", 7/10 pain scale. Prn Catapres 0.1 mg p.o. given per request for patient c/o; increased anxiety, restlessness, and some agitation. And, Prn Zofran Odt 4 mg given per patient c/o nausea.
[2016-08-31] VITALS: BP 131/81
--- NOTE | 2016-08-31 00:10 | NUR ---
REASSESSMENT PRN MEDICATIONS : Patient went downstairs to the hospital patio with staff and other patients, to smoke and socialize.
[2016-08-31] MEDS: HYDROXYZINE PAMOATE 25 MG CAPSULE PO PRN (01:20)
--- NOTE | 2016-08-31 01:20 | NUR ---
PRN MEDICATION: Prn Vistaril 50 mg p.o. given per patient's request for his c/o anxiety.
--- NOTE | 2016-08-31 02:20 | NUR ---
REASSESSMENT PRN MEDICATION: Patient noted sleeping in his room with eyes closed and respirations quiet, even, unlabored at 14.
--- NOTE | 2016-08-31 04:00 | NUR ---
Patient refused V/S, CIWA, COWS to be done at this time.
--- NOTE | 2016-08-31 06:30 | NUR ---
0630 Patient slept at total of 4 hours. Total intake was 915 ml p.o. and he had 2 voids and 1 stools. V/SS afebrile, COWS 5, CIWA 2 Prn Medications given noted separately per floor protocol. Patient is presently sleeping at this time with eyes closed and respirations even at 14. Overall, patient is cooperative, friendly and verbally appropriate when he is awake, however he also will frequently express 'vague' somatic complaints, and exhibit manipulative and drug-seeking behavior,and must be redirected from testing limits, which he does respond to.
[2016-08-31] MEDS: PANTOPRAZOLE SODIUM 40 MG TABLET.DR PO SCH (07:06)
--- NOTE | 2016-08-31 08:30 | NUR ---
BEGINNING OF SHIFT Patient endorsement report received from night court magistrate nurse, all pertinent information discussed. Patient is a 21 year old male admitted on 08/27/2016 with admitting Dx: Opiate dependence. Patient with past medical history of: seizure history r/t bzo withdrawal December 2015, HTN, hep c +. Patient with substance use history of: Xanax Po 12mg daily for 5 months, Klonopin 6-8mg daily every other day for 4 months, Suboxone 20mg daily for 5 months, fentanyl powder sniffed 0.5gram 1-2 times per week, heroin iv 1 gram daily for 4 years. As per night court magistrate patient received prn: Anbesol, Motrin, Tylenol, clonidine, Zofran, Benadryl and Vistaril, per night court magistrate medications were effective. Per night court magistrate patients last ciwa score of: 2 and cow score of: 4, slept for 4 hours. Patient received in bed with eyes closed respirations are even and unlabored. Responsive to verbal stimuli, educated regarding plan of care for the day and medication regimen, patient is scheduled for bedside paracentesis during shift as ordered, safety measures in place, call light with in reach, will continue to monitor closely
[2016-08-31 08:42] VITALS: BP 137/87
[2016-08-31] MEDS ORDERED: DIAZEPAM 5 MG TABLET PO SCH (09:00)
[2016-08-31] MEDS ORDERED: BUPRENORPHINE HCL 2 MG TAB.SUBL SL SCH ×2 (09:00)
[2016-08-31] MEDS: CLONIDINE HCL 0.1 MG TABLET PO SCH (09:43)
[2016-08-31] MEDS: PHENYTOIN SODIUM EXTENDED 100 MG CAPSULE.SA PO SCH (09:43)
[2016-08-31] MEDS: GABAPENTIN 300 MG CAPSULE PO SCH ×3 (09:44→21:26)
[2016-08-31] MEDS: PROPRANOLOL HCL 10 MG TABLET PO SCH (09:44)
[2016-08-31] MEDS: MULTIVITAMINS,THERAPEUTIC TABLET PO SCH (09:44)
[2016-08-31] MEDS: IBUPROFEN 600 MG TABLET PO PRN (09:44)
[2016-08-31] MEDS: DICYCLOMINE HCL 20 MG TABLET PO SCH (09:44)
[2016-08-31] MEDS: BACLOFEN 20 MG TABLET PO SCH (09:45)
[2016-08-31] MEDS: BENZOCAINE ORAL CARE 12 ML BOTTLE MM PRN (09:48)
--- NOTE | 2016-08-31 09:48 | NUR ---
PRN MOTRIN Patient c/o tooth ache 12/21, administered Motrin as ordered, and Anbesol as ordered,will monitor effectiveness.
--- NOTE | 2016-08-31 10:48 | NUR ---
MOTRIN ANBESOL REASSESSMENT Patient reports medication with relief, will continue to monitor.
[2016-08-31 12:04] LABS: *AMPHETAMINE, URINE NEGATIVE (NEGATIVE); *BARBITURATE, URINE NEGATIVE (NEGATIVE); *CANNABINOID, URINE NEGATIVE (NEGATIVE); *COCCAINE, URINE NEGATIVE (NEGATIVE); *OPIATE, URINE NEGATIVE (NEGATIVE); *PHENCYCLIDINE SCREEN,URINE NEGATIVE (NEGATIVE)
[2016-08-31 13:16] VITALS: BP 137/87
[2016-08-31 17:36] VITALS: BP 133/80
--- NOTE | 2016-08-31 19:13 | NUR ---
END OF SHIFT Patient alert and oriented x4, Patient with admitting Dx: opiate dependence, Patients taper was discontinued by MD, continues under close observation.,Patient encouraged adequate PO fluid intake as tolerated 0900 assessment patient presented with heart rate of 86, difficulty sitting still, bone and joints ches, stomach cramps, anxiety and mild agitation with cow score of: 7, 1300 assessment patient presented with: heart rate of 88, mild anxiety, mild agitation, mild bone and joint aches with ciwa score of: 2 and cow score of: 3. 1700 assessment patient presented with: heart rate of 82, mild anxiety, mild agitation, mild bone and joint aches with ciwa score of: 2, and cow score of: 3; patient was placed on 1:1 sitter as per administration. encouraged patient adequate PO fluid intake as tolerated, patient, encouraged patient to attend group therapies/sessions to learn new coping skills to prevent relapse noted attending and participating, patient denies SI/HI. During shift administered PRN: Motrin and Anbesol at 0948, medications effective one hour post administration. Safety measures in place. Call light with in reach, will continue to monitor closely. Patient endorsement report given to night stocker nurse, all pertinent information discussed.
--- NOTE | 2016-08-31 19:15 | NUR ---
START OF SHIFT NOTE : Patient is a 21 year old male admitted on 08/27/2016 with admitting Dx: Opiate dependence. Patient with past medical history of: seizure history r/t benzo withdrawal December 2015, HTN, Hep C +. Patient received in bed with eyes closed respirations are even and unlabored. Responsive to verbal stimuli, educated regarding plan of care for the day and medication regimen, last Ciwa score of: 2, and Cows score of: 3 on at 16:00; patient was placed on 1:1 sitter as per administration for close observation , encouraged patient adequate PO fluid intake as tolerated, patient, encouraged patient to attend group therapies/sessions to learn new coping skills to prevent relapse noted attending and participating, patient denies SI/HI. Safety measures in place : bed on lowest position with side rails x2 up for safety, call light within reach. Will continue to monitor closely and offer help.
[2016-08-31 20:00] VITALS: BP 132/95
[2016-09-01] VITALS: BP 113/73
--- NOTE | 2016-09-01 01:00 | NUR ---
PRN MEDICATION : Motrin, Clonidine, Vistaril, Benadryl, Zofran Pt. complains of nausea, mild body ache, increased level of anxiety, 5/10, flashes, sleeplessness. PRN MEDICATION : Motrin, Clonidine, Vistaril, Benadryl, Zofran given as ordered. Safety measures in place : bed on lowest position with side rails x2 up for safety, call light within reach. Will continue to monitor closely and offer help.
[2016-09-01] MEDS: diphenhydrAMINE 50 MG CAPSULE PO PRN ×2 (01:03→22:01)
[2016-09-01] MEDS: ONDANSETRON ODT 4 MG TAB.RAPDIS SL PRN ×2 (01:03→02:53)
[2016-09-01] MEDS: CLONIDINE HCL 0.1 MG TABLET PO PRN ×2 (01:03→22:01)
[2016-09-01] MEDS: HYDROXYZINE PAMOATE 25 MG CAPSULE PO PRN ×3 (01:04→22:02)
[2016-09-01] MEDS: IBUPROFEN 600 MG TABLET PO PRN ×2 (01:04→08:34)
--- NOTE | 2016-09-01 02:00 | NUR ---
REASSESSMENT PRN MEDICATION: Patient noted sleeping in his room with eyes closed and respirations quiet, even, unlabored at 14. Safety measures in place : bed on lowest position with side rails x2 up for safety, call light within reach. Will continue to monitor closely and offer help.
[2016-09-01] MEDS: PANTOPRAZOLE SODIUM 40 MG TABLET.DR PO SCH (06:43)
--- NOTE | 2016-09-01 06:54 | NUR ---
END OF SHIFT Patient alert and oriented x4, Patient with admitting Dx: opiate dependence, Patients taper was discontinued by MD, continues under close observation. Patient was placed on 1:1 sitter as per administration. encouraged patient adequate PO fluid intake as tolerated, patient, encouraged patient to attend group therapies/sessions to learn new coping skills to prevent relapse noted attending and participating, patient denies SI/HI. During shift administered PRN: Clonidine, Motrin, Vistaril, Benadryl, medications effective one hour post administration. Pt remains compliant with the treatment plan. Pt denies nausea, vomiting and diarrhea. V/S remain WNL. RR=16, even and unlabored, lungs clear upon auscultation, abdomen soft and non- distended. Pt denies nausea, vomiting and diarrhea. LAST CIWA=2 ,COWS=3 at 0400 , INTAKE= 1,000 ml, voided x 1, slept 5 hours. Safety measures in place : bed on lowest position with side rails x2 up for safety, call light within reach. Will continue to monitor closely and offer help.
[2016-09-01 07:11] LABS: *BENZODIAZEPINES Negative (Cutoff=300)
--- NOTE | 2016-09-01 07:27 | NUR ---
BEGINNING OF SHIFT Patient endorsement report received from mold shifter nurse, all pertinent information discussed. Patient is a 21 year old male admitted on 08/27/2016 with admitting Dx: Opiate dependence. Patient with past medical history of: seizure history r/t bzo withdrawal December 2015, HTN, hep c +. Patient with substance use history of: Xanax Po 12mg daily for 5 months, Klonopin 6-8mg daily every other day for 4 months, Suboxone 20mg daily for 5 months, fentanyl powder sniffed 0.5gram 1-2 times per week, heroin iv 1 gram daily for 4 years. As per mold shifter patient received p. rn: clonidine, Motrin, Vistaril, Benadryl, and Zofran, per mold shifter medications were effective. Per mold shifter patients last ciwa score of: 2 and cow score of: 3, currently with no ongoing taper, continues under close observation, slept for 8 hours. Patient received in bed with eyes closed respirations are even and unlabored. Responsive to verbal stimuli, educated regarding plan of care for the day and medication regimen, patient is scheduled for bedside paracentesis during shift as ordered, safety measures in place, call light with in reach, will continue to monitor closely
[2016-09-01 08:32] VITALS: BP 125/64
[2016-09-01] MEDS: PHENYTOIN SODIUM EXTENDED 100 MG CAPSULE.SA PO SCH (08:33)
[2016-09-01] MEDS: GABAPENTIN 300 MG CAPSULE PO SCH ×3 (08:34→22:01)
[2016-09-01] MEDS: PROPRANOLOL HCL 10 MG TABLET PO SCH (08:34)
[2016-09-01] MEDS: MULTIVITAMINS,THERAPEUTIC TABLET PO SCH (08:34)
--- NOTE | 2016-09-01 08:34 | NUR ---
PRN MOTRIN/VISTARIL patient c/o toothache 11/21 and increase anxiety, administered Motrin as ordered and Vistaril as ordered, will monitor effectiveness.
--- NOTE | 2016-09-01 09:34 | NUR ---
MOTRIN/VISTARIL REASSESSMENT Patient reports medication with relief, current pain level is 0/10 and reports feels calm, will continue to monitor.
[2016-09-01 12:29] VITALS: BP 128/68
[2016-09-01 16:30] VITALS: BP 122/71
[2016-09-01] MEDS ORDERED: Ibuprofen PO (17:05)
[2016-09-01] MEDS ORDERED: PHEN100C4 PO (17:05)
[2016-09-01] MEDS ORDERED: METH-33 PO (17:05)
--- NOTE | 2016-09-01 18:53 | NUR ---
END OF SHIFT Patient alert and oriented x4, Patient with admitting Dx: opiate dependence, Patients taper completed and patient is scheduled to be discharged to [facility] tomorrow, patient continues with 1:1 sitter as per administration. ,Patient encouraged adequate PO fluid intake as tolerated 0900 assessment patient presented with mild bone and joint aches, mild anxiety and mild agitation; 1300 assessment patient presented with mild anxiety and mild agitation, with cow score of: 2 and ciwa score of: 2; 1300 assessment patient presented with mild anxiety and mild agitation with cow score of: 1 and ciwa score of: 2; 1700 assessment patient presented with mild anxiety and mild agitation with cow score of: 1 and ciwa score of: 1. patient, encouraged patient to attend group therapies/sessions to learn new coping skills to prevent relapse noted attending and participating, patient denies SI/HI. During shift administered PRN: Motrin and Vistaril at 0834, medication effective one hour post administration. Safety measures in place. Call light with in reach, will continue to monitor closely. Patient endorsement report given to [facility] shift [facility] nurse, all pertinent information discussed.
--- NOTE | 2016-09-01 19:10 | NUR ---
START OF SHIFT : Patient is a 21 year old male admitted on 08/27/2016 with admitting Dx: Opiate dependence. Patient with past medical history of: seizure history r/t benzo withdrawal December 2015, HTN, Hep C +. Patient received in bed with eyes closed respirations are even and unlabored. Responsive to verbal stimuli, educated regarding plan of care for the day and medication regimen, last Ciwa score of: 2, and Cows score of: 1 on at 16:00; patient was placed on 1:1 sitter as per administration for close observation , encouraged patient adequate PO fluid intake as tolerated, patient, encouraged patient to attend group therapies/sessions to learn new coping skills to prevent relapse noted attending and participating, patient denies SI/HI. Pt. will be D/C on 09/02/2016, UDS collected. Safety measures in place : bed on lowest position with side rails x2 up for safety, call light within reach. Will continue to monitor closely and offer help.
[2016-09-01 20:00] VITALS: BP 125/75
[2016-09-01 20:43] LABS: *AMPHETAMINE, URINE NEGATIVE (NEGATIVE); *BARBITURATE, URINE NEGATIVE (NEGATIVE); *CANNABINOID, URINE NEGATIVE (NEGATIVE); *COCCAINE, URINE NEGATIVE (NEGATIVE); *OPIATE, URINE NEGATIVE (NEGATIVE); *PHENCYCLIDINE SCREEN,URINE NEGATIVE (NEGATIVE)
--- NOTE | 2016-09-01 21:00 | NUR ---
PRN MEDICATION : Clonidine, Vistaril, Benadryl, Robaxin Pt. complains of mild muscle spasm, increased level of anxiety, 5/10, flashes, sleeplessness. PRN MEDICATION : Motrin, Clonidine, Vistaril, Benadryl, Robaxin given as ordered. Safety measures in place : bed on lowest position with side rails x2 up for safety, call light within reach. Will continue to monitor closely and offer help.
[2016-09-01] MEDS: METHOCARBAMOL 750 MG TABLET PO PRN (22:01)
[2016-09-02] MEDS: PANTOPRAZOLE SODIUM 40 MG TABLET.DR PO SCH (06:17)
--- NOTE | 2016-09-02 06:54 | NUR ---
END OF SHIFT NOTE : Patient alert and oriented x4, Patient with admitting Dx: opiate dependence, Patients taper was discontinued by MD, continues under close observation. Patient was placed on 1:1 sitter as per administration. encouraged patient adequate PO fluid intake as tolerated, patient, encouraged patient to attend group therapies/sessions to learn new coping skills to prevent relapse noted attending and participating, patient denies SI/HI. During shift administered PRN: Clonidine, Vistaril, Benadryl, Robaxin medications effective one hour post administration. Pt remains compliant with the treatment plan. Pt denies nausea, vomiting and diarrhea. V/S remain WNL. RR=16, even and unlabored, lungs clear upon auscultation, abdomen soft and non- distended. Pt denies nausea, vomiting and diarrhea. LAST CIWA=1 ,COWS=1 at 0400 , INTAKE= 855 ml, voided x 1, slept 6 hours. Safety measures in place : bed on lowest position with side rails x2 up for safety, call light within reach. Will continue to monitor closely and offer help.
--- NOTE | 2016-09-02 07:18 | NUR ---
Start of shift note SBAR report rcv'd. Pt was admitted for opiate and benzo dependence. pt has a PMH of HTN, and hep C, pt has a hx of seizure from withdrawal. Pt has an allergy to PCN, is full code and on a regular diet. Pt is scheduled for d/c today. Pt continues on administrative 1:1, sitter at bedside. Pt is currently sleeping in bed, respirations are even and unlabored. Will continue to monitor pt. All needs addressed at this time.
[2016-09-02 08:00] VITALS: BP 147/94
[2016-09-02] MEDS: PHENYTOIN SODIUM EXTENDED 100 MG CAPSULE.SA PO SCH (08:49)
[2016-09-02 08:50] VITALS: BP 147/94
[2016-09-02] MEDS: PROPRANOLOL HCL 10 MG TABLET PO SCH (08:50)
[2016-09-02] MEDS: GABAPENTIN 300 MG CAPSULE PO SCH (08:50)
[2016-09-02] MEDS: MULTIVITAMINS,THERAPEUTIC TABLET PO SCH (08:50)
--- NOTE | 2016-09-02 09:47 | NUR ---
Discharge note Pt was admitted for benzo and opiate dependence. Pt VS are WNL. Denies SI/HI. Pt had a COWS and CIWA of 1 and 1. Pt stated he was constipated but refused miralax and colace. Abdomen is soft and non-distended. Pt to follow up with PCP if no BM. Pt verbalized his understanding of the discharge instructions. Pt medications, prescriptions, and discharge instructions placed in bag for pt and secured shut by staff. Pt ID band removed, pt ambulated off of unit with [employer]PERVISOR, left via [facility] for [facility].
== END 2016-09-02 09:47 | disposition other institution (70) | DRG 895 ==
LOC: SRC 08-27 09:01
PROVIDERS: ADMIT Internal Medicine; ATTEND Internal Medicine
PROC: HZ2ZZZZ Detoxification Services for Substance Abuse Treatment (ICD-10-PCS; principal; 2016-08-27)
PROC: HZ31ZZZ Individual Counseling for Substance Abuse Treatment, Behavioral (ICD-10-PCS; 2016-08-28)
PROC: HZ41ZZZ Group Counseling for Substance Abuse Treatment, Behavioral (ICD-10-PCS; 2016-08-28)
DX: F11.23 Opioid dependence with withdrawal (principal); E87.0 Hyperosmolality and hypernatremia; R74.0 Nonspecific elevation of levels of transaminase and lactic acid dehydrogenase [LDH]; G40.409 Other generalized epilepsy and epileptic syndromes, not intractable, without status epilepticus; K03.81 Cracked tooth; Z82.5 Family history of asthma and other chronic lower respiratory diseases; Z80.1 Family history of malignant neoplasm of trachea, bronchus and lung; Z81.8 Family history of other mental and behavioral disorders; Z91.19 Patient's noncompliance with other medical treatment and regimen; G25.81 Restless legs syndrome; E83.39 Other disorders of phosphorus metabolism; F17.210 Nicotine dependence, cigarettes, uncomplicated; I10 Essential (primary) hypertension; F13.239 Sedative, hypnotic or anxiolytic dependence with withdrawal, unspecified; F10.239 Alcohol dependence with withdrawal, unspecified; Y90.9 Presence of alcohol in blood, level not specified
CPT/HCPCS: 36415; 70030-TC; 80307; 80346; 83735; 84100; 84443; 85025; 86580; 86592; 86705; 86803; 87340; 87806; A4663; A9150; G6040-TC; J3411; Q0162; Q0163

== ENCOUNTER → 2016-08-28 | Outpatient (CLI) | payer OTHER ==
[~2016-08-28] MED LIST: BACL20TA PO; CLON0.1T PO; GABA600T2 PO; HYDR50CA5 PO; OMEP20TA68 PO; PHEN100C4 PO; PROP10TA10 PO
== END | disposition home or self-care (01) ==
LOC: CT 15:19
PROVIDERS: ATTEND Internal Medicine
DX: R56.9 Unspecified convulsions (principal)
CPT/HCPCS: 70450

== ENCOUNTER 2016-12-16 15:58 | Inpatient (IN) | payer OTHER ==
[~2016-12-16] VITALS: Ht 172.7 cm; Wt 80.7 kg
[~2016-12-16 15:58] MED LIST changes: -BACL20TA PO; +Ibuprofen PO; +METH-33 PO; +OMEP20TA5 PO; -OMEP20TA68 PO
--- NOTE | 2016-12-16 20:05 | NUR ---
Pre-Admission Note: Patient assessed in intake office at 20:05 on 12/16/2016. Patient is ambulatory with steady gait, stable, oriented X4, speech is slightly slurred, delayed. Patient states that he is here to safely detox from Xanax and Subutex. Pt is a re-admission from August 2016, but reports that he has currently been using for 4 months. VS: 123/79, 76, 98.3, 14, 97% Spo2 on RA. Patient reports 7/10 joint pain but appears in no distress, and noted with somnolence. Patient reports allergy to PCN. Patient instructed on unit protocol of vitals Q4H and COWS/CIWA assessments. Patient verbalized understanding and agreement. Patient also instructed on policy regarding destruction of any controlled substances/prescriptions brought to facility, and handling of all medications. Patient verbalized understanding and agreement. Will complete admission assessment when patient is brought up to unit.
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
[2016-12-16 20:25] VITALS: BP 123/79
--- NOTE | 2016-12-16 20:25 | NUR ---
Contraband: Patient escorted onto unit at 20:20. Patient repeatedly demanding that his shoes be returned to him. Pt informed that all belongings that are brought on the unit must be thoroughly searched. Pt continued to argue with staff regarding the return of his shoes. During property search by Intake and HEAVY TRUCK DRIVER staff, 20-30 round, blue pills were discovered hidden inside the interior soles of both shoes. Pills identified by color, shape, and imprint as clonazepam. All pills destroyed as per unit protocol and shoes returned to client.
[2016-12-16] MEDS ORDERED: HYDROXYZINE PAMOATE 25 MG CAPSULE PO PRN (20:30)
[2016-12-16] MEDS ORDERED: ACETAMINOPHEN 325 MG TABLET PO PRN (20:30)
[2016-12-16] MEDS ORDERED: ONDANSETRON ODT 4 MG TAB.RAPDIS SL PRN (20:30)
[2016-12-16] MEDS ORDERED: diphenhydrAMINE 50 MG CAPSULE PO PRN (20:30)
[2016-12-16] MEDS ORDERED: LORAZEPAM 1 MG TABLET PO PRN ×2 (20:30)
[2016-12-16] MEDS ORDERED: MAG HYDROX/AL HYDROX/SIMETH 30 ML LIQUID UDC PO PRN (20:30)
[2016-12-16] MEDS ORDERED: LOPERAMIDE HCL 2 MG CAPSULE PO PRN ×2 (20:30)
[2016-12-16] MEDS ORDERED: ONDANSETRON 4 MG/2 ML VIAL IM PRN (20:30)
[2016-12-16] MEDS ORDERED: MIRALAX 17 GM POWD.PACK PO PRN (20:30)
[2016-12-16] MEDS ORDERED: LORAZEPAM 2 MG/1 ML VIAL IM PRN (20:30)
[2016-12-16] MEDS ORDERED: MAGNESIUM HYDROXIDE 30 ML LIQUID UDC PO PRN (20:30)
[2016-12-16] MEDS ORDERED: DICYCLOMINE HCL 20 MG TABLET PO PRN ×2 (20:30)
[2016-12-16] MEDS ORDERED: IBUPROFEN 400 MG TABLET PO PRN (20:30)
[2016-12-16] MEDS ORDERED: BUPRENORPHINE HCL 2 MG TAB.SUBL SL PRN (20:30)
[2016-12-16] MEDS ORDERED: METHOCARBAMOL 750 MG TABLET PO PRN (20:30)
[2016-12-16 20:48] LABS: *AMPHETAMINE, URINE NEGATIVE (NEGATIVE); *BARBITURATE, URINE NEGATIVE (NEGATIVE); *CANNABINOID, URINE NEGATIVE (NEGATIVE); *COCCAINE, URINE NEGATIVE (NEGATIVE); *OPIATE, URINE NEGATIVE (NEGATIVE); *PHENCYCLIDINE SCREEN,URINE NEGATIVE (NEGATIVE)
[2016-12-16] MEDS ORDERED: LORAZEPAM 1 MG TABLET PO ONE (21:00)
[2016-12-16 23:02] LABS: ETHANOL < 3 MG/DL (0-0)
[2016-12-16 23:05] LABS: ALANINE AMINOTRANSFERASE 95 U/L (16-63); ALKALINE PHOSPHATASE 91 U/L (50-136); AMYLASE 33 U/L (25-115); ASPARTATE AMINOTRANSFERASE 46 U/L (15-37); BASOPHILS % (AUTO) 0.3 % (0.0-2.0); BILIRUBIN,TOTAL 0.4 mg/dL (0.2-1.0); CARBON DIOXIDE 32 mmol/L (21-32); CHLORIDE 105 mmol/L (98-107); CREATININE 1.2 mg/dL (0.6-1.3); EOSINOPHILS # (AUTO) 0.2 K/uL (0.0-0.7); EOSINOPHILS % (AUTO) 2.5 % (0.0-7.0); GLUCOSE 97 mg/dL (74-106); HEMATOCRIT 41.2 % (40-50); HEMOGLOBIN 14.2 G/DL (14.0-18.0); LIPASE 182 U/L (73-393); LYMPHOCYTES # (AUTO) 3.1 K/UL (0.8-4.8); LYMPHOCYTES % (AUTO) 47.5 % (20.5-51.5); MAGNESIUM 1.9 mg/dL (1.8-2.4); MEAN CORPUSCULAR HGB CONC 34 g/dL (32.0-37.0); MEAN CORPUSCULAR VOLUME 87.2 FL (82.0-92.0); MONOCYTES # (AUTO) 0.7 K/UL (0.1-1.30); MONOCYTES % (AUTO) 9.5 % (0.0-11.0); NEUTROPHILS # (AUTO) 2.8 K/UL (1.8-8.9); NEUTROPHILS % (AUTO) 40.2 % (38.5-71.5); PLATELET COUNT (AUTO) 251 K/UL (150-450); POTASSIUM 3.9 mmol/L (3.5-5.1); RED BLOOD CELL COUNT(AUTO) 4.72 MIL/UL (4.7-6.1); TOTAL PROTEIN, SERUM 6.6 g/dL (6.4-8.2); UREA NITROGEN, BLOOD 16 mg/dL (7-18); WHITE BLOOD COUNT (AUTO) 6.9 K/UL (4.0-11.2)
[2016-12-16 23:12] LABS: THYROID STIMULATING HORMONE 1.542 mIU/mL (0.358-3.740)
[2016-12-17] VITALS: BP 139/83
--- NOTE | 2016-12-17 01:01 | NUR ---
PRN Subutex: Patient complains of anxiety, diaphoresis, nausea, restlessness, lacrimation, face is flushed, joint pain. COWS is 14. Administered PRN Subutex 4mg SL as ordered. Will reassess in 30 minutes.
--- NOTE | 2016-12-17 01:37 | NUR ---
PRN Reassessment: Patient reports a decrease in anxiety, diaphoresis, pain, lacrimation. COWS decreased from 14 to 4 thirty minutes after PRN Subutex 4mg SL administration.
[2016-12-17] MEDS ORDERED: TRAZ-144 PO (02:00)
[2016-12-17] MEDS ORDERED: CARB200T PO (02:00)
[2016-12-17] MEDS ORDERED: QUET50TA PO (02:00)
[2016-12-17] MEDS ORDERED: DICY20TA11 PO (02:00)
[2016-12-17] MEDS ORDERED: CLON0.1T PO (02:00)
[2016-12-17] MEDS ORDERED: LEVE500T20 PO (02:00)
[2016-12-17] MEDS ORDERED: QUET100T PO (02:00)
[2016-12-17] MEDS ORDERED: HYDR50CA5 PO (02:00)
[2016-12-17] MEDS ORDERED: METH-406 PO (02:00)
[2016-12-17] MEDS ORDERED: BUPR1TAB40 SL (02:00)
[2016-12-17] MEDS ORDERED: GABA-536 PO (02:00)
[2016-12-17] MEDS ORDERED: HYDR-3895 PO (02:00)
[2016-12-17 04:00] VITALS: BP 117/69
--- NOTE | 2016-12-17 06:45 | NUR ---
End of Shift Note: Pt is a 21 yo male admitted to [facility] last night for medically-supervised withdrawal from benzodiazepines and buprenorphine. Pt reported PMHx of depression, anxiety, HTN, Hep-C, and epilepsy (last 09/2016). Pt is a full code. Pt reports allergy to PCN. Pt is on a regular diet. Pt reported taking 16mg Xanax and 18mg Subutex daily for 4 months and is to start 5-day Subutex and Ativan tapers today. PRN Subutex was given for COWS=14, which was effective and reduced COWS=4. Last COWS=4, CIWA=5 at 04:00. V/S stable throughout shift. Total fluid intake this shift: 1469 ml; output: urine x 1 and BM x 0. Pt is currently in bed and slept 6 hours this shift. All needs have been attended and met. Pt endorsed to day shift nurse.
--- NOTE | 2016-12-17 07:00 | NUR ---
Start of Shift Notes: Received patient in his room. Alert and oriented x 4. Verbally responsive. Able to make needs known. Respirations even and unlabored. No SOB noted. Skin warm and dry to touch. Abdomen soft and non-distended with (+) BS in all 4 quadrants. No complains of N/V/D or diarrhea noted. Abdomens soft and non-distended. No complains of dysuria noted. Ambulatory ad tessa with steady gait. Patient is a 21 year old male admitted for opiate and BZO dependence who was placed on a 5-day Ativan and 5-day Subutex taper as ordered. No adverse reactions noted. Has past medical hx of Hep C, depresion, anxiety and seizures related to withdrawal. Has allergies to PCN. FULL CODE. Regular diet. On fall and seizure precaution. Educated patient on his current plan of care for the day and his medication regimen. Encouraged oral fluid intake and encouraged group participation to learn new skills to prevent relapse. Will continue to monitor. On fall and seizure precautions. Last COWS 4, CIWA 4. Slept for 6 hours. Will continue to monitor closely.
[2016-12-17 08:00] VITALS: BP 114/74
[2016-12-17] MEDS: BUPRENORPHINE HCL 2 MG TAB.SUBL SL SCH ×3 (08:18→16:27)
[2016-12-17] MEDS: CLONIDINE HCL 0.1 MG TABLET PO PRN ×2 (08:19→14:43)
[2016-12-17] MEDS: GABAPENTIN 300 MG CAPSULE PO SCH ×2 (08:19→14:42)
[2016-12-17] MEDS: LORAZEPAM 1 MG TABLET PO SCH ×3 (08:19→16:27)
--- NOTE | 2016-12-17 08:19 | NUR ---
Clonidine 0.1mg PO and Robaxin 750 mg Po given: Patient seen with gross tremors, agitated, anxious with profuse sweating related to withdrawals. Also complains of 5/10 generalized muscle aches and pains. Non-pharmacological interventions were provided but was not effective. Medicated patient with Clonidine 0.1mg PO and Robaxin 750 mg Po as ordered. Will monitor for effectiveness.
[2016-12-17] MEDS ORDERED: PHENYTOIN SODIUM EXTENDED 100 MG CAPSULE.SA PO SCH ×2 (09:00→21:00)
[2016-12-17] MEDS ORDERED: TUBERCULIN,PURIF.PROT.DERIV. 5 TU/0.1 ML TEST ID ONE (09:00)
[2016-12-17] MEDS ORDERED: MULTIVITAMINS,THERAPEUTIC TABLET PO SCH (09:00)
--- NOTE | 2016-12-17 09:19 | NUR ---
Re-assessment: Per patient, PRN Clonidine and Robaxin were effective in reducing patient's chills, anxiety, sweats, muscle aches and pains.
[2016-12-17 12:00] VITALS: BP 132/73
[2016-12-17] MEDS ORDERED: HYDROXYZINE PAMOATE 25 MG CAPSULE PO PRN (12:45)
--- NOTE | 2016-12-17 14:43 | NUR ---
Clonidine 0.1mg PO given: Patient reports anxiety, chills, hot flashes. Noted with agitation. Asking for more Subutex and Ativan. COWS 5, CIWA 6. Medicated patient with Clonidine 0.1mg PO as ordered. Will monitor for effectiveness.
--- NOTE | 2016-12-17 15:02 | NUR ---
Therapist prompted client about groups. Client stated he would go to afternoon group if he feels well.
--- NOTE | 2016-12-17 15:34 | NUR ---
Behavior: Patient noted with multiple episodes of agitating other clients by being rude during group. It was noted that while activities was in session, patient yelled "Shut up!" to other clients. Also noted with episodes of verbal aggression towards staff and other clients. Staff immediately intervened and de-escalated the situation. Dean Of Instruction, and bullet maker was notified. Educated patient on appropriate behavior unit's policy and protocol.
[2016-12-17 16:00] VITALS: BP 134/94
--- NOTE | 2016-12-17 16:00 | NUR ---
Room Restriction: Patient placed in room restriction per administration due to inappropriate behavior towards staff and other clients. Patient states he will comply.
[2016-12-17] MEDS ORDERED: Medication Not On Formulary EA (Quetiapine Fumarate (Seroquel) 50 MG) PO SCH (17:15)
--- NOTE | 2016-12-17 18:30 | NUR ---
Behavior: Patient continues to exhibit inappropriate behavior to staff. Non-compliant with room restriction. Patient was encouraged to abide by the rules of the unit. Patient continues to use foul language towards staff. No physical aggression noted.
--- NOTE | 2016-12-17 18:55 | NUR ---
AMA NOTE Pt refused to comply with treatment. Pt educated about the risks and consequences of leaving AMA, pt verbalized understanding but was adamant about leaving. Multiple staff members including doctors, patient advocates and nurses attempted to reason with pt without any success. VS WNL, skin intact pt denied any suicidal or homicidal ideations. Pt's psychiatrist and MD were notified and aware. Pt was given a list of community resources , AMA forms explained and signed. all belongings returned to Pt.
--- NOTE | 2016-12-17 19:00 | NUR ---
Off the unit: Patient left AMA at this time. Escorted by BILINGUAL OFFICE ASSISTANT and weatherization administrator. Denies S/I or H/I. All belongings, valuables and medications were returned to the patient. List of community resources were given to the patient. MD Townsend and MD Duncan ([facility] - community health consultant) made aware.
[2016-12-17] MEDS ORDERED: CARBAMAZEPINE 200 MG TABLET PO SCH (21:00)
[2016-12-17] MEDS ORDERED: TRAZODONE 50 MG TABLET PO SCH ×2 (21:00)
[2016-12-17] MEDS ORDERED: QUETIAPINE FUMARATE 100 MG TABLET PO SCH (21:00)
[2016-12-17] MEDS ORDERED: LEVETIRACETAM 500 MG TABLET PO SCH (21:00)
[2016-12-18] MEDS ORDERED: LORAZEPAM 1 MG TABLET PO SCH (09:00)
[2016-12-18] MEDS ORDERED: QUETIAPINE FUMARATE 25 MG TABLET PO SCH (09:00)
[2016-12-18] MEDS ORDERED: BUPRENORPHINE HCL 2 MG TAB.SUBL SL SCH (09:00)
[2016-12-18 13:09] LABS: HEPATITIS B SURFACE AG Negative (Negative)
[2016-12-19] MEDS ORDERED: BUPRENORPHINE HCL 2 MG TAB.SUBL SL SCH ×2 (09:00→15:00)
[2016-12-19] MEDS ORDERED: LORAZEPAM 1 MG TABLET PO SCH (09:00)
[2016-12-20] MEDS ORDERED: LORAZEPAM 1 MG TABLET PO SCH (09:00)
[2016-12-20] MEDS ORDERED: BUPRENORPHINE HCL 2 MG TAB.SUBL SL SCH (09:00)
[2016-12-21] MEDS ORDERED: LORAZEPAM 1 MG TABLET PO SCH (09:00)
[2016-12-21] MEDS ORDERED: BUPRENORPHINE HCL 2 MG TAB.SUBL SL SCH (09:00)
== END 2016-12-17 21:00 | disposition left against medical advice (07) | DRG 894 ==
LOC: SRC 19:23
PROVIDERS: ADMIT Internal Medicine; ATTEND Internal Medicine
DX: F13.230 Sedative, hypnotic or anxiolytic dependence with withdrawal, uncomplicated (principal); G40.919 Epilepsy, unspecified, intractable, without status epilepticus; B19.9 Unspecified viral hepatitis without hepatic coma; F10.230 Alcohol dependence with withdrawal, uncomplicated; Y90.9 Presence of alcohol in blood, level not specified; F11.23 Opioid dependence with withdrawal; F41.9 Anxiety disorder, unspecified; G47.00 Insomnia, unspecified; F17.210 Nicotine dependence, cigarettes, uncomplicated; Z79.899 Other long term (current) drug therapy; Z80.1 Family history of malignant neoplasm of trachea, bronchus and lung; Z81.1 Family history of alcohol abuse and dependence; K70.10 Alcoholic hepatitis without ascites; F31.9 Bipolar disorder, unspecified
CPT/HCPCS: 36415; 70030-TC; 80307; 80346; 83690; 83735; 84443; 85025; 86580; 86592; 86705; 86803; 87340; 87806; G0480